=== PATIENT | female | born 1965 | race Caucasian/White ===

== ENCOUNTER 2017-09-10 10:45 | Outpatient (CLI) | payer OTHER ==
[2017-09-10 13:50] LABS: ALBUMIN 4.3 g/dL (3.2-5.5); ALBUMIN/GLOBULIN RATIO 1.4 (1.0-2.2); BILIRUBIN,TOTAL 0.5 mg/dL (0.2-1.0); CALCIUM 9.4 mg/dL (8.5-10.3); CREATININE 0.7 mg/dL (0.4-1.0); TOTAL PROTEIN 7.4 g/dL (6.7-8.2)
[2017-09-10 14:06] LABS: BASOPHILS # (AUTO) 0.1 10^3/uL (0.0-0.1); BASOPHILS % (AUTO) 0.9 %; EOSINOPHILS # (AUTO) 0.1 10^3/uL (0.0-0.7); EOSINOPHILS % (AUTO) 1.7 %; LYMPHOCYTES % (AUTO) 15.2 %; MEAN CORPUSCULAR HGB CONC 33.7 g/dL (32.0-36.0); MEAN CORPUSCULAR VOLUME 91.9 fL (81.0-99.0); MEAN PLATELET VOLUME 10.9 fL (7.9-10.8); MONOCYTES # (AUTO) 0.8 10^3/uL (0.0-1.0); NEUTROPHILS # (AUTO) 4.4 10^3/uL (1.5-6.6); NEUTROPHILS % (AUTO) 69.2 %; PLT - PLATELET COUNT 211 10^3/uL (130-450); RED BLOOD COUNT 4.84 10^6/uL (4.20-5.40); RED CELL DISTRIBUTION WIDTH 14.1 % (12.0-15.0); WHITE BLOOD COUNT 6.4 x10^3/uL (4.8-10.8)
[2017-09-10 14:17] LABS: RBC MORPHOLOGY (MULTIPLE) 1+ ANISOCYTOSIS (NORMAL)
== END 2017-09-10 10:46 | disposition home or self-care (01) ==
LOC: LAB.R 10:45
PROVIDERS: ATTEND Nurse Practitioner Primary Care
DX: R10.84 Generalized abdominal pain (principal); N93.9 Abnormal uterine and vaginal bleeding, unspecified
CPT/HCPCS: 80053; 85025

== ENCOUNTER 2017-10-22 05:48 | Emergency (ER) | payer OTHER ==
--- NOTE | 2017-10-22 06:07 | ED Physician Documentation ---
PD HPI CHEST PAIN - Stated complaint Stated Complaint: CHEST TIGHTNESS - Chief complaint Chief Complaint: Cardiac - History obtained from History obtained from: Patient - History of Present Illness Timing - onset: How many hours ago (7) Timing - details: Gradual onset, Intermittant Quality: Pressure, Tightness Location: Left chest, Right chest Radiation: Jaw Associated symptoms: No: Shortness of air, Diaphoresis, Nausea Similar symptoms before: Has not had sx before Recently seen: Not recently seen - Additional information Additional information: Patient is a 52 year old female with no significant past medical history who is presenting to the emergency department for chest pain. Patient states that the symptoms started at about 11 at night. Patient states it started at rest and felt like chest pressure. Patient states that it radiated up into her jaws. Patient states that she tried to sleep but had intermittent symptoms so she came in for evaluation. Patient denies any recent surgery, estrogen use or history of clots. patient denied any exertional component to the pain. Review of Systems Constitutional: denies: Fever, Chills Eyes: denies: Decreased vision, Photophobia Ears: denies: Ear pain, Drainage/discharge Nose: denies: Rhinorrhea / runny nose, Congestion, Foreign Body Throat: reports: Sore throat. denies: Dental pain / toothache Cardiac: reports: Chest pain / pressure. denies: Palpitations, Pedal edema, Calf pain Respiratory: denies: Dyspnea, Cough, Wheezing GI: denies: Abdominal Pain, Nausea, Vomiting : reports: Reviewed and negative Skin: reports: Reviewed and negative Musculoskeletal: denies: Neck pain, Back pain, Extremity pain Neurologic: denies: Generalized weakness, Focal weakness, Numbness, Headache, Head injury Psychiatric: denies: Depressed, Anxiety Immunocompromised: denies: Immunocompromised PD PAST MEDICAL HISTORY - Present Medications Home Medications: Ambulatory Orders Medication Instructions Recorded Confirmed No Known Home Medications [No 10/22/17 10/22/17 Known Home Medications] - Allergies Allergies/Adverse Reactions: Allergies Allergy/AdvReac Type Severity Reaction Status Date / Time No Known Drug Allergies Allergy Verified 10/22/17 06:15 PD ED PE NORMAL - Vitals Vital signs reviewed: Yes - General General: Alert and oriented X 3, No acute distress, Well developed/nourished - HEENT HEENT: Atraumatic, PERRL, Moist mucous membranes, Pharynx benign, Dentition benign - Neck Neck: Supple, no meningeal sign, No JVD - Cardiac Cardiac: RRR, No murmur - Respiratory Respiratory: No respiratory distress, Clear bilaterally - Abdomen Abdomen: Soft, Non tender, Non distended - Derm Derm: Normal color, Warm and dry, No rash - Extremities Extremities: No deformity, Normal ROM s pain, No calf tenderness / cord - Neuro Neuro: Alert and oriented X 3, No motor deficit, No sensory deficit, Normal speech Eye Opening: Spontaneous Motor: Obeys Commands Verbal: Oriented GCS Score: 15 PD ED PE EXPANDED - Cardiac Cardiac: Chest wall TTP (tenderness to palpation of left chest) Results - Vitals Vitals: Vital Signs - 24 hr 10/22/17 10/22/17 10/22/17 05:52 05:55 06:13 Temperature 36.6 C Heart Rate 77 75 Respiratory 13 14 Rate Blood Pressure 112/73 105/63 Blood Pressure 105/70 [Left] Blood Pressure 112/73 [Right] O2 Saturation 98 99 Oxygen O2 Source Room air - EKG (time done) 0558 Rate: Rate (enter#) (68) Rhythm: NSR [place]: Normal Intervals: Normal LA QRS: Normal Ischemia: Normal ST segments Compare to prior EKG: Old EKG unavailable - Labs Labs: Laboratory Tests 10/22/17 10/22/17 10/22/17 06:03 06:03 06:03 WBC 6.8 RBC 4.25 Hgb 13.1 Hct 39.6 MCV 93.2 MCH 30.9 MCHC 33.1 RDW 13.5 Plt Count 183 MPV 9.0 Neut # 4.9 Lymph # 1.2 L [place] # 0.6 Eos # 0.1 Baso # 0.0 Absolute Nucleated RBC 0.00 Nucleated RBC % 0.0 Sodium 137 Potassium 3.4 L Chloride 105 Carbon Dioxide 23 Anion Gap 9.0 BUN 12 Creatinine 0.7 Estimated GFR (MDRD) 88 L Glucose 94 Calcium 8.9 Total Bilirubin 1.0 AST 20 ALT 16 Alkaline Phosphatase 47 Troponin I < 0.04 Total Protein 6.7 Albumin 4.2 Globulin 2.5 Albumin/Globulin Ratio 1.7 Lipase 24 - Rads (name of study) chest x-ray Radiology: Final report received (normal) PD MEDICAL DECISION MAKING - ED course Complexity details: reviewed old records, reviewed results, re-evaluated patient , considered differential, d/w patient ED course: patient was seen and examined at bedside. ekg was performed and was normal sinus. labs were drawn and chest x-ray was performed. Patient's diagnostics were all within normal limits. Patient had a HEART score of 1, and PERC 0. Patient required no further testing at this time and was stable for discharge with outpatient follow up. Departure - Departure Disposition: Home, Self Care Clinical Impression: Atypical chest pain Condition: Good Instructions: ED Chest Pain Atypical Unkn Cause Follow-Up: Gabriella Pozo ARNP [Primary Care Provider] - Comments: Your diagnostics today were within normal limits. It is difficult to say what exactly caused your symptoms but it is unlikely to be cardiac or pulmonary in nature. You can try taking motrin or tylenol if the pain returns. The pain could be caused by inflammation of your cartilage, anxiety, GERD or a developing virus. You should follow up with your doctor if your symptoms return for further evaluation and care.
[2017-10-22 06:09] LABS: BASOPHILS % (AUTO) 0.7 %; EOSINOPHILS # (AUTO) 0.1 10^3/uL (0.0-0.7); EOSINOPHILS % (AUTO) 1.1 %; HGB - HEMOGLOBIN 13.1 g/dL (12.0-16.0); LYMPHOCYTES # (AUTO) 1.2 10^3/uL (1.5-3.5); LYMPHOCYTES % (AUTO) 17.9 %; MEAN CORPUSCULAR HEMOGLOBIN 30.9 pg (27.0-31.0); MEAN CORPUSCULAR HGB CONC 33.1 g/dL (32.0-36.0); MEAN CORPUSCULAR VOLUME 93.2 fL (81.0-99.0); MONOCYTES # (AUTO) 0.6 10^3/uL (0.0-1.0); MONOCYTES % (AUTO) 8.2 %; NEUTROPHILS # (AUTO) 4.9 10^3/uL (1.5-6.6); NEUTROPHILS % (AUTO) 72.1 %; PLT - PLATELET COUNT 183 10^3/uL (130-450); RED BLOOD COUNT 4.25 10^6/uL (4.20-5.40); RED CELL DISTRIBUTION WIDTH 13.5 % (12.0-15.0); WHITE BLOOD COUNT 6.8 x10^3/uL (4.8-10.8)
--- NOTE | 2017-10-22 06:18 | XRAY Report ---
EXAM: CHEST RADIOGRAPHY EXAM DATE: 10/22/2017 06:14 AM. CLINICAL HISTORY: Chest tightness. COMPARISON: None. TECHNIQUE: 1 view. FINDINGS: Lungs/Pleura: No focal opacities evident. No pleural effusion. No pneumothorax. Mediastinum: Within exam limitations, the cardiomediastinal contour is normal. Other: None. IMPRESSION: Normal single view chest. [facility] Referring Provider Line: [phone] SITE ID: [id number]
[2017-10-22 06:25] LABS: ALBUMIN 4.2 g/dL (3.2-5.5); ALBUMIN/GLOBULIN RATIO 1.7 (1.0-2.2); CALCIUM 8.9 mg/dL (8.5-10.3); CREATININE 0.7 mg/dL (0.4-1.0); TOTAL PROTEIN 6.7 g/dL (6.7-8.2)
[2017-10-22] MEDS ORDERED: KETOROLAC 60 MG/2 ML VIAL IVP STA (06:34)
[2017-10-22 07:02] VITALS: BP 100/61
== END 2017-10-22 07:02 | disposition home or self-care (01) ==
LOC: ED 05:48
DX: R07.89 Other chest pain (principal)
CPT/HCPCS: 36415; 71045; 80053; 83690; 84484; 85025; 93005; 96374; 99284

== ENCOUNTER 2017-11-25 19:18 | Outpatient (CLI) | payer OTHER ==
[2017-11-25 19:56] LABS: BASOPHILS % (AUTO) 0.9 %; EOSINOPHILS # (AUTO) 0.1 10^3/uL (0.0-0.7); EOSINOPHILS % (AUTO) 1.2 %; HGB - HEMOGLOBIN 12.9 g/dL (12.0-16.0); LYMPHOCYTES # (AUTO) 1.7 10^3/uL (1.5-3.5); LYMPHOCYTES % (AUTO) 31.3 %; MEAN CORPUSCULAR HEMOGLOBIN 30.7 pg (27.0-31.0); MEAN CORPUSCULAR HGB CONC 32.5 g/dL (32.0-36.0); MEAN CORPUSCULAR VOLUME 94.5 fL (81.0-99.0); MEAN PLATELET VOLUME 8.6 fL (7.9-10.8); MONOCYTES # (AUTO) 0.5 10^3/uL (0.0-1.0); MONOCYTES % (AUTO) 8.9 %; NEUTROPHILS # (AUTO) 3.1 10^3/uL (1.5-6.6); NEUTROPHILS % (AUTO) 57.7 %; PLT - PLATELET COUNT 178 10^3/uL (130-450); RED BLOOD COUNT 4.21 10^6/uL (4.20-5.40); RED CELL DISTRIBUTION WIDTH 13.6 % (12.0-15.0); WHITE BLOOD COUNT 5.5 x10^3/uL (4.8-10.8)
[2017-11-25 20:15] LABS: ALBUMIN 4.3 g/dL (3.2-5.5); ALBUMIN/GLOBULIN RATIO 1.7 (1.0-2.2); BILIRUBIN,TOTAL 0.4 mg/dL (0.2-1.0); CALCIUM 8.8 mg/dL (8.5-10.3); CREATININE 0.8 mg/dL (0.4-1.0); TOTAL PROTEIN 6.9 g/dL (6.7-8.2)
[2017-11-25 20:34] LABS: BILIRUBIN,URINE NEGATIVE (NEGATIVE); GLUCOSE, URINE (UA) NEGATIVE (NEGATIVE); KETONES,URINE (UA) NEGATIVE (NEGATIVE); LEUKOCYTE ESTERASE, URINE NEGATIVE (NEGATIVE); NITRITE,URINE NEGATIVE (NEGATIVE); OCCULT BLOOD,URINE SMALL (NEGATIVE); PROTEIN,URINE NEGATIVE (NEGATIVE); UROBILINOGEN,URINE 0.2 (NORMAL) E.U./dL (NORMAL)
[2017-11-25 20:45] LABS: CLARITY,URINE CLEAR (CLEAR); HCG UR QUAL NEGATIVE
== END 2017-11-25 19:19 | disposition home or self-care (01) ==
LOC: LAB 19:18
PROVIDERS: ATTEND Obstetrics & Gynecology
DX: D25.0 Submucous leiomyoma of uterus (principal); N92.1 Excessive and frequent menstruation with irregular cycle; Z01.818 Encounter for other preprocedural examination
CPT/HCPCS: 36415; 80053; 81003; 81025; 85025; 86850; 86900; 86901; 93005

== ENCOUNTER 2017-11-26 10:23 | Day surgery (SDC) | payer OTHER ==
--- NOTE | 2017-11-11 16:34 | PREOP HISTORY & PHYSICAL ---
DATE OF SERVICE: 11/19/2017 Physician: Mauri Moreland MD SCHEDULED PROCEDURE OF 11/26/2017 INTENDED PROCEDURE: Laparoscopic-assisted vaginal hysterectomy and bilateral salpingectomy. HISTORY: The patient is a 52-year-old primigravida who reports abdominal pressure and pain associated with her expanding uterine leiomyoma. She has an ultrasound documented large myoma that has failed previous fibroid embolization procedure. 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 She notes pressure and pain that is most pronounced when she is on her feet most of the day. Due to the failure of the prior fibroid embolization, she desires definitive and complete cure of the fibroid, hysterectomy. Her bleeding pattern is roughly every 28-26 days and can be prolonged over 7 days. In the past, she has used IUD and oral contraceptives. She has never had an abnormal Pap smear and the last was normal. PAST MEDICAL HISTORY: The patient is healthy and active. She requires screening colonoscopy. She is in a monogamous situation and has never been exposed to an STD. All of her current cultures, GC and chlamydia, are normal. Her first and only delivery was at 33 weeks and was a rapid labor. Psychologically, she has had some bouts of depression in the past. Currently she feels well. PAST SURGICAL HISTORY: Bladder repair 2013. ALLERGIES: NONE. MEDICATIONS: Listed. REVIEW OF SYSTEMS CONSTITUTIONAL: Negative. HEENT: Negative. CARDIOVASCULAR: Negative. GASTROINTESTINAL: Negative. GENITOURINARY: Reference HPI. No reported urinary incontinence. MUSCULOSKELETAL: Negative. DERMATOLOGIC: Negative. BREASTS: Negative. NEUROLOGIC: Negative. PSYCHOLOGIC: Negative. FAMILY HISTORY: Depression. No easy bleeding tendencies. SOCIAL HISTORY: The patient is currently single, but in a stable relationship. No drug, tobacco, or alcohol use. Drinks 1-3 cups of coffee a day. Engages in aerobics and strength training 3 times a week. 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 PHYSICAL EXAMINATION GENERAL: Alert, oriented, well groomed. Pleasant demeanor. HEENT: Supple neck. No thyromegaly. PERRLA. EOMI. Nonicteric sclerae. LUNGS: Clear to auscultation. CARDIOVASCULAR: Regular. No murmur, no gallop. Normal pulses. BREASTS: Normal. No abnormal secretions, tenderness, implants, or masses. ABDOMEN: Soft, nontender. No hernia, masses, or organomegaly. SKIN: Smooth and clear, no suspicious lesions. NEUROLOGIC: Grossly intact. PSYCHOLOGIC: No anxiety, irritability, or signs of depression. Pleasant demeanor. PELVIC EXAMINATION VULVA: No lesions. Bartholin glands normal. No incontinence seen on cough or stress. VAGINA: Normal mucosa. No prolapse. No abnormal discharge. Cervix with no ulcerations or lesions. UTERUS: Enlarged to 11 weeks size, somewhat fixed, tender, obvious leiomyoma. ADNEXA: Mobile, seemed to be normal size. ASSESSMENT: The patient has an enlarged uterus that has failed embolization procedure. The uterine leiomyoma is implicated in her bleeding and pain problems. Currently there is no prolapse evident. At this point, her fibroids are such an interference with her life situation, she desires them removed. She was counseled as to the risks of surgery including blood loss, transfusion, infection, damage to urinary tract and bowels, and possible increased incidence in prolapse. After informed consent session, the patient desires laparoscopic assisted vaginal hysterectomy. PLAN: Patient being prepared for laparoscopic assisted vag hyst with bilateral salpingectomy 11/26/17. She desires conservation of her ovaries if possible. Prior to surgery H&P reviewed and updated TD: 11/03/2017 15:20 SHAKILA
[~2017-11-26 10:23] MED LIST: BUPIVACAINE 0.5%-EPI 1:200000 PF 10 ML VIAL ONE; BUPIVACAINE 0.5%-EPI 1:200000 PF 30 ML VIAL SUBQ ONE; ceFAZolin 2 GM/50 ML 2 GM/50 ML BAG IV ONE
[2017-11-26] MEDS ORDERED: LACTATED RINGERS 1,000 ML IV ONE ×3 (10:51→16:49)
[2017-11-26] MEDS ORDERED: CITRIC ACID/SODIUM CITRATE 15 ML UDC PO ONE (11:06)
[2017-11-26] MEDS ORDERED: fentaNYL 250 MCG/5 ML VIAL IVP ONE (11:48)
[2017-11-26] MEDS ORDERED: MIDAZOLAM 2 MG/2 ML VIAL IVP ONE (11:48)
[2017-11-26] MEDS ORDERED: ACETAMINOPHEN 1,000 MG/100 ML 100 ML IV ONE (11:48)
[2017-11-26] MEDS ORDERED: NEOSTIGMINE 1 MG/1 ML 10 ML MDV IVP ONE (11:48)
[2017-11-26] MEDS ORDERED: PROPOFOL 200 MG/20 ML VIAL IVP ONE (11:48)
[2017-11-26] MEDS ORDERED: ROCURONIUM 50 MG/5 ML VIAL IVP ONE (11:48)
[2017-11-26] MEDS ORDERED: KETOROLAC 30 MG/ML VIAL IVP ONE (11:48)
[2017-11-26] MEDS ORDERED: ONDANSETRON 4 MG/2 ML VIAL IVP ONE (11:48)
[2017-11-26] MEDS ORDERED: DEXAMETHASONE 4 MG/ML VIAL IVP ONE (11:48)
[2017-11-26] MEDS ORDERED: GLYCOPYRROLATE 1 MG/5 ML VIAL IVP ONE (11:48)
[2017-11-26] MEDS ORDERED: LIDOCAINE-MPF 2% 5 ML VIAL IM ONE (11:48)
[2017-11-26] MEDS ORDERED: SUCCINYLCHOLINE 200 MG/10 ML VIAL IVP ONE (11:48)
[2017-11-26] MEDS ORDERED: BUPIVACAINE 0.5%-EPI 1:200000 PF 30 ML VIAL SUBQ ONE ×2 (12:23)
[2017-11-26] MEDS ORDERED: METHYLENE BLUE 0.5% 50 MG/10 ML AMPULE ONE (12:48)
[2017-11-26] MEDS ORDERED: LACTATED RINGERS 500 ML IV ONE (13:01)
[2017-11-26] MEDS ORDERED: BUPIVACAINE 0.5%-EPI 1:200000 PF 10 ML VIAL ONE (13:09)
--- NOTE | 2017-11-26 13:17 | OPERATIVE REPORT ---
Operative Report - General Planned Procedure: Laparoscopic assisted vaginal hysterectomy; bilateral salpingectomy; Joshua Pre-Op Diagnosis: Enlarged uterus with uterine leiomyomata; associated pelvic pain; prior sub Procedure Performed: Laparoscopic assisted vaginal hysterectomy bilateral salpingectomy; Joshua Post Op Diagnosis: Same as above - Procedure Note Primary Surgeon: Mauri Moreland MD Secondary Surgeon: Mauri Amezcua MD Anesthesia Provider: Kris Patton, certified nurse barrel endshaker adjuster Anesthesia Technique: General ET tube Pathology: Uterus and tubes IV Fluids (mL): 1,000 Estimated Blood Loss (mL): 50 Urine Output (mL): 1,000 Drain/Tube Type: Other (Adams catheter) Complications: None
[2017-11-26] MEDS ORDERED: ONDANSETRON 4 MG/2 ML VIAL ONE (13:50)
[2017-11-26] MEDS: HYDROmorphone 1 MG/ML CARPUJECT ONE ×3 (13:55→14:17)
[2017-11-26 16:50] VITALS: BP 102/52
[2017-11-26] MEDS ORDERED: SCOPOLAMINE PATCH TOP ONE (17:00)
[2017-11-26] MEDS ORDERED: oxyCOD/ACETAMIN 5 MG/325 MG TABLET PO ONE (17:00)
[2017-11-26] MEDS ORDERED: PROMETHAZINE 25 MG/1 ML VIAL IM PRN (17:43)
--- NOTE | 2017-11-26 17:58 | OPERATIVE REPORT ---
DATE OF SERVICE: 11/26/2017 Physician: Mauri Moreland MD PREOPERATIVE DIAGNOSES 1. Enlarged fibroid uterus, associated with pelvic pain and abnormal bleeding. 2. Failed prior fibroid embolization, 3. Prior suburethral sling procedure. POSTOPERATIVE DIAGNOSES 1. Enlarged fibroid uterus, associated with pelvic pain and abnormal bleeding. 2. Failed prior fibroid embolization, 3. Prior suburethral sling procedure. 3. Fibroids extending into the right broad & Uterosacral Ligaments NAME OF PROCEDURE 1. Laparoscopic-assisted vaginal hysterectomy. 2. Bilateral salpingectomy. 3. Lewis procedure. SURGEON: Mauri Moreland MD, FACOG, FICS INDUSTRIAL RELATIONS ANALYST SURGEON: Mauri Amezcua MD, FACOG ACCOUNTING SOFTWARE SPECIALIST: Kris Patton, Certified Nurse Tissue Specialist. ANESTHESIA TYPE: General, ET tube placed. ESTIMATED BLOOD LOSS: 150. COMPLICATIONS: None. IV FLUIDS: 1400. URINE OUTPUT: 300, clear. DRAINS: Adams. FINDINGS: Exam under anesthesia finds no external genital or vaginal lesions. The cervix appears to be normal but bulbous. The uterus is enlarged to 10-week size. Tubes appeared to be normal. Ovaries were atrophic with no cystic activity. There was no suspicion of ovarian pathology. During the procedure, a 2 x 3 cm pedunculated fibroid was found in the right broad ligament and superior uterosacral ligament. Cystoscopic examination after hysterectomy finds no incursions into the bladder. Both right and left ureter were functional. There was no evidence of interstitial cystitis or infection. TECHNIQUE: Prior to the procedure, I met the patient and discussed her pathology and the mechanics of the intended procedure: laparoscopic vaginal hysterectomy with bilateral salpingo-oophorectomy and Lewis culdoplasty. It was explained that all surgery carries risks such as: Blood loss, transfusion, infection, unintentional damage to bladder, ureters and intestines. She confirmed that she desired to keep her ovaries unless they appeared to be diseased. We also discussed our plans not to disrupt her prior midurethral sling. All questions were answered, and informed consent paperwork was signed. The patient was brought to the operating room and placed in the supine position for administration of general anesthesia. She was uneventfully induced and intubated. She was prepped and draped in the customary sterile fashion. Timeout briefing was done per protocol. A clamshell speculum was used to visualize the cervix. A HUMI uterine manipulator & Adams was uneventfully placed. A small incision was placed under the umbilical skin fold. A 5 mm Visiport trocar was uneventfully placed. The abdomen was insufflated with CO2 gas at 12 mm of pressure. Next, 5 mm operative ports were placed in the right and left lower quadrant under direct visualization. The abdomen and pelvis were assessed. Reference photos & findings. We began the procedure on the right-hand side. The tube was tented superiorly and medially to expose the mesenteric fold. The mesenteric vessels were then uneventfully desiccated and divided down to the level of the cornu. The utero-ovarian and round ligaments were then desiccated and divided. Broad ligaments were then desiccated and divided and the ascending uterine vessels skeletonized. The ascending uterine vessels were desiccated and divided. The insertion of the uterine artery and vein was distorted downward by the presence of a lateral projecting fibroid. The extent of the anatomic distortion became more apparent during the vaginal phase. This process was then repeated on the left-hand side. The left uterine artery and vein were easily accessible then desiccated and divided with LigaSure. Next, we converted to the vaginal phase. All gas was removed from the abdomen, and the legs placed in the high dorsal lithotomy position. Small aliquots of Marcaine 0.5% with epinephrine were placed around the cervical barrel. Using cautery, the cervical barrel was then circumscribed. The posterior compartment was sharply entered and a Alfredo speculum placed. We continued dissection anteriorly until we were in the anterior cul-de-sac. The base of the uterosacral ligaments were clamped, transected and transfixed with 0 Ethibond. The uterosacral ligament bundles above the initial insertion were then clamped, transected and transfixed with 0 Ethibond. We encountered the left sided fibroid (2 x 3 cm) previously mentioned above. The vessels feeding the fibroid and uterine artery/vein were clamped, transected and transfixed with 0 Vicryl. The Left uterine vessels were skeletonized and had been previously desiccated. The vessels inferior to Left sided fibroid were desiccated and divided. Additionally, reinforcing stitches of 2-0 Vicryl were placed. The uterus was then removed in its entirety. The pelvic peritoneum was pursestringed with 2-0 Vicryl. The uterosacral ligament bundles were then plicated to the vaginal cuff corners, right and left. In turn, the uterosacral ligaments were plicated in the midline using the 0 Ethibond. The skin was closed with a running stitch of 0 chromic. At the end of the case, it was noted that without the uterus present, a grade 1 rectocele was evident. There was adequate upper cuff support, though some mobility existed. Cystoscopy was done. The bladder was inspected and photographed using a 70- degree video cystoscope. There were no incursions and both ureters were functional. Adams was then replaced. The abdomen was reinsufflated with CO2 gas. All operative sites were inspected and photographed. The CO2 gas was then released. Roughly 500 mL of fluid was left and CO2 drained. All trocar sleeves were removed. The skin was closed with interrupted subcuticular stitches of 4-0 Monocryl & Dermabond was placed. Small aliquots of Half percent Marcaine with epinephrine for patient comfort. The patient was uneventfully awakened and sent to the recovery room in good condition. Postoperatively, patient remained very nauseous. Her pain was controlled but she could not void. She was kept on an extended-stay status. Patient is not expected to remain in the hospital for more than 12 hours. TD: 11/26/2017 17:57 SHAKILA
[2017-11-26] MEDS ORDERED: SCOPOLAMINE PATCH TOP SCH (18:00)
[2017-11-26] MEDS ORDERED: MAGNESIUM HYDROXIDE 2,400 MG/30 ML UDC PO SCH (21:00)
== END 2017-11-26 22:45 | disposition home or self-care (01) ==
LOC: SDS 10:23 → OBS 17:15 → SDS 22:45
PROVIDERS: ATTEND Obstetrics & Gynecology
PROC: 0UT9FZZ Resection of Uterus, Via Natural or Artificial Opening With Percutaneous Endoscopic Assistance (ICD-10-PCS; principal; 2017-11-26 12:00)
PROC: 0UT7FZZ Resection of Bilateral Fallopian Tubes, Via Natural or Artificial Opening With Percutaneous Endoscopic Assistance (ICD-10-PCS; 2017-11-26 12:00)
DX: D25.0 Submucous leiomyoma of uterus (principal); D25.1 Intramural leiomyoma of uterus; N92.1 Excessive and frequent menstruation with irregular cycle; N72 Inflammatory disease of cervix uteri
CPT/HCPCS: 36415; 58552; 86850; 86900; 86901; A9270; J0131; J0330; J0690; J1170; J3010; J3490; J7120; 88307

== ENCOUNTER 2018-05-26 08:00 | Outpatient (CLI) | payer OTHER ==
[2018-05-26 16:54] LABS: BASOPHILS % (AUTO) 0.7 %; EOSINOPHILS # (AUTO) 0.1 10^3/uL (0.0-0.7); EOSINOPHILS % (AUTO) 1.6 %; HGB - HEMOGLOBIN 14.2 g/dL (12.0-16.0); LYMPHOCYTES # (AUTO) 1.3 10^3/uL (1.5-3.5); LYMPHOCYTES % (AUTO) 29.3 %; MEAN CORPUSCULAR HEMOGLOBIN 31.7 pg (27.0-31.0); MEAN CORPUSCULAR HGB CONC 33.3 g/dL (32.0-36.0); MEAN CORPUSCULAR VOLUME 95.3 fL (81.0-99.0); MEAN PLATELET VOLUME 10.2 fL (7.9-10.8); MONOCYTES # (AUTO) 0.4 10^3/uL (0.0-1.0); MONOCYTES % (AUTO) 8.1 %; NEUTROPHILS # (AUTO) 2.7 10^3/uL (1.5-6.6); NEUTROPHILS % (AUTO) 60.3 %; PLT - PLATELET COUNT 189 10^3/uL (130-450); RED BLOOD COUNT 4.49 10^6/uL (4.20-5.40); RED CELL DISTRIBUTION WIDTH 13.5 % (12.0-15.0); WHITE BLOOD COUNT 4.5 x10^3/uL (4.8-10.8)
[2018-05-26 17:33] LABS: ALBUMIN 4.5 g/dL (3.2-5.5); ALBUMIN/GLOBULIN RATIO 1.7 (1.0-2.2); ALKALINE PHOSPHATASE 58 IU/L (42-121); ALT ALANINE AMINOTRANSFERASE 15 IU/L (10-60); AST ASPARTATE AMINOTRANSFERASE 20 IU/L (10-42); BILIRUBIN,TOTAL 0.6 mg/dL (0.2-1.0); BUN - BLOOD UREA NITROGEN 27 mg/dL (6-20); CALCIUM 9.2 mg/dL (8.5-10.3); CARBON DIOXIDE - CO2 25 mmol/L (21-32); CHLORIDE 103 mmol/L (101-111); CHOL/HDL RATIO 2.6 (<4.4); CHOLESTEROL 253 mg/dL; CREATININE 0.6 mg/dL (0.4-1.0); GFR - MDRD 105 (>89); GLUCOSE 76 mg/dL (70-100); HDL CHOLESTEROL 98 mg/dL; LDL CHOLESTEROL,CALCULATED 144 mg/dL; LDL/HDL RATIO 1.5 (<4.4); SODIUM 136 mmol/L (135-145); TOTAL PROTEIN 7.1 g/dL (6.7-8.2); VLDL CHOLESTEROL 11 mg/dL
== END 2018-05-26 08:01 | disposition home or self-care (01) ==
LOC: LAB.R 08:00
PROVIDERS: ATTEND Physician Assistant Medical
DX: Z00.00 Encounter for general adult medical examination without abnormal findings (principal); E55.9 Vitamin D deficiency, unspecified; Z79.899 Other long term (current) drug therapy
CPT/HCPCS: 80053; 80061; 82306; 83721; 84443; 85025

== ENCOUNTER 2018-09-01 08:00 | Outpatient (CLI) | payer OTHER | END 2018-09-01 23:59 | disposition home or self-care (01) | LOC: LAB.R 08:00 | PROVIDERS: ATTEND Physician Assistant Medical | DX: E55.9 Vitamin D deficiency, unspecified (principal); Z79.899 Other long term (current) drug therapy | CPT/HCPCS: 82306 ==